=== PATIENT | female | born 1985 ===

== ENCOUNTER 2017-04-30 11:57 | Emergency (ER) | payer OTHER ==
[2017-04-30 12:17] VITALS: BP 130/80; PULSE 76; TEMP 97.8; O2SAT 97
[2017-04-30] MEDS ORDERED: DiphenhydrAMINE 50 mg/ml Inj IVP STA (12:21)
[2017-04-30] MEDS ORDERED: Sodium Chloride 0.9% 500 ML IV ONE ×2 (12:21→12:35)
--- NOTE | 2017-04-30 12:24 | C.PDOC ---
History Of Present Illness 31 yr old female presents to the ER for evaluation of pruritic rash, gradually developing for the past 4 days. Patient denies history of any allergens to medications and food, also unable to recall any exposures. Denies fever, chills , throat swelling or tightness, drooling, dysphagia, dyspnea, cough, SOB , wheezing, CP, abd. apin, N/V/D, denies swelling. Ambulate to Ed for evaluation, not in any apparent distress. Time Seen by Provider: 04/30/17 12:14 Chief Complaint (Nursing): Abnormal Skin Integrity History Per: Patient History/Exam Limitations: no limitations Onset/Duration Of Symptoms: Gradual (Past 4 days) Past Medical History Reviewed: Historical Data, Nursing Documentation, Vital Signs Vital Signs: Last Vital Signs Temp 97.8 F 04/30/17 12:05 Pulse 76 04/30/17 12:05 Resp 16 04/30/17 12:05 BP 130/80 04/30/17 12:05 Pulse Ox 97 04/30/17 12:29 Family History: States: No Known Family Hx - Social History Hx Tobacco Use: Yes Hx Alcohol Use: No Hx Substance Use: No - Immunization History Hx Tetanus Toxoid Vaccination: No Hx Influenza Vaccination: No Hx Pneumococcal Vaccination: No Review Of Systems Except As Marked, All Systems Reviewed And Found Negative. Constitutional: Negative for: Fever, Chills Respiratory: Negative for: Cough, Shortness of Breath, Wheezing Skin: Positive for: Rash (pruritic rash) Physical Exam - Physical Exam Appears: Well, Non-toxic, No Acute Distress Skin: Warm, Dry, Other ((+) diffuse urticaria mostly over anterior and posterior trunk, B/L UEs and LEs. No cellulitis.) Head: Normacephalic Eye(s): bilateral: PERRL Ear(s): Bilateral: Normal Nose: No Flaring, No Discharge Oral Mucosa: Moist, No Drooling Tongue: Normal Appearing, No Swelling Lips: Normal Appearing, No Swelling Throat: No Erythema, No Exudate, No Drooling, Other (uvula midline no edema.) Neck: Trachea Midline, Supple Cardiovascular: Rhythm Regular, No Murmur Respiratory: No Decreased Breath Sounds, No Accessory Muscle Use, No Rales, No Rhonchi, No Stridor, No Wheezing Gastrointestinal/Abdominal: Soft, No Tenderness Extremity: Normal ROM, No Pedal Edema, No Swelling Neurological/Psych: Oriented x3, Normal Speech ED Course And Treatment O2 Sat by Pulse Oximetry: 97 (RA) Pulse Ox Interpretation: Normal Progress Note: On re-evaluation, pt is afebrile, hemodynamicaly stable. Non- toxic. Tolerate PO well in ED. NOt in resp. distress. PulsEOx 97% RA. ENT: no acute findings. Uvula midline, no edema. Neck: SUPple, (-) meningeal sign. Lungs: CTA B/L, BS equal B/L. Skin: mod improvement in generalized urticaria. Neurologicaly intact. Pt has clinical findings c/w urticaria r/o allerhgic reaction. Pt advised and ref. to F/u with PMD in 2-3 days for re-eval. return if any worsening or new changes. Medical Decision Making Medical Decision Making: PLAN: * Benadryl IVP * Pepcid IVP * Solumedrol IVP * Sodium Chloride IV Disposition Counseled Patient/Family Regarding: Diagnosis, Need For Followup, Rx Given - Disposition Referrals: Db Keenan MD [Medical Doctor] - Disposition: HOME/ ROUTINE Disposition Time: 12:55 Condition: STABLE Additional Instructions: TAKE MEDICATION PRESCRIBED FOLLOW UP WITH PMD, SR. MANAGER CORPORATE COMMUNICATIONS IN 2-3 DAYS FOR RE-EVALUATION. RETURN TO ED IF ANY WORSENING OR NEW CHANGES. 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 - Scribe Statement The provider has reviewed the documentation as recorded by the Scribe Sonya Ryan All medical record entries made by the Foziaibkat were at my direction and personally dictated by me. I have reviewed the chart and agree that the record accurately reflects my personal performance of the history, physical exam, medical decision making, and the department course for this patient. I have also personally directed, reviewed, and agree with the discharge instructions and disposition.
[2017-04-30] MEDS ORDERED: DiphenhydrAMINE 50 mg/ml Inj ONE (12:35)
[2017-04-30 13:47] VITALS: RESP 20
== END 2017-04-30 13:46 | disposition home or self-care (01) ==
LOC: C.ER 11:57
DX: L50.9 Urticaria, unspecified (principal)
CPT/HCPCS: 96361; 96374; 96375; 99283; J1200; J2930; J7040